=== PATIENT | female | born 1995 | race African-American/Black ===

== ENCOUNTER 2019-03-02 02:55 | Inpatient (IN) | payer OTHER ==
[2019-03-02] MEDS ORDERED: OXYTOCIN 20 UNITS in 0.9% NS 20 UNIT/1,000 ML INFUS.BAG IV ONE ×2 (03:44→07:18)
[2019-03-02 04:01] LABS: BASO % 1.2 % (0-2.0); EOS % 4.1 % (0-4.5); HEMATOCRIT 34.5 % (32.4-45.2); HEMOGLOBIN 11.1 GM/dL (10.7-15.3); MCH 26.9 pg (25.7-33.7); MCHC 32.1 g/dl (32.0-36.0); MEAN CELL VOLUME 83.6 fl (80-96); MEAN PLT VOLUME 10.3 fl (7.5-11.1); MONO % 10.8 % (3.8-10.2); NEUT % 51.9 % (42.8-82.8); PLATELET COUNT 194 K/MM3 (134-434); RBC 4.13 M/mm3 (3.60-5.2); RDW 13.9 % (11.6-15.6)
[2019-03-02 04:23] VITALS: BMI 26.9
[2019-03-02 04:26] LABS: INR 0.89 (0.83-1.09); PROTHROMBIN TIME (PATIENT) 10.5 SEC (9.7-13.0)
[2019-03-02 04:28] LABS: ACTIVATED PTT 29.1 SECONDS (25.2-36.5)
[2019-03-02 04:33] LABS: BLOOD UREA NITROGEN 7.6 mg/dL (7-18); CREATININE 0.7 mg/dL (0.55-1.3); POTASSIUM 3.7 mmol/L (3.5-5.1)
--- NOTE | 2019-03-02 04:38 | HP ---
Past Medical History - Admission Chief Complaint: active labor History of Present Illness: none History Source: Patient Limitations to Obtaining History: No Limitations - Past Medical History DIVER PUMPER: No: Alzheimer's, CVA, Dementia, Migraine, Multiple Sclerosis, Peripheral Neuropathy, Parkinson's, Seizure, Syncope, TIA, Vertigo, Other Cardiovascular: No: AFIB, Aneurysm, Aortic Insufficiency, Aortic Stenosis, CAD, CHF, Deep Vein Thrombosis, HTN, Hyperlipdemia, GA, Mitral Insufficiency, Mitral Stenosis, Murmur, Pulmonary Hypertension, Other Pulmonary: No: Asthma, Bronchitis, Cancer, COPD, O2 Dependent, Pneumonia, Previously Intubated, Pulmonary Embolus, Pulmonary Fibrosis, Sleep Apnea, Other Gastrointestinal: No: Ascites, Cancer, Constipation, Crohn's Disease, Diverticulitis, Diverticulosis, Esophageal Varices, Gastritis, GERD, GI Bleed, Hemorrhoids, Hiatal Hernia, Inflamatory Bowel Disease, Irritable Bowel Disease, Pancreatitis, Peptic Ulcer Disease, Ulcerative Colitis, Other Hepatobiliary: No: Cirrhosis, Cholelithiasis, Cholecystitis, Choledocholithiasis , Hepatitis A, Hepatitis B, Hepatitis C, Other Renal/: No: Renal Failure, Renal Inusuff, BPH, Cancer, Hematuria, Hemodialysis , Neurogenic Bladder, Renal Calculi, UTI, Other Reproductive: No: Ectopic , Endometriosis, Fibroids, PID, Polycystic Ovary Syndrome, Postmenopausal, Other ...: 2 ...Para: 1 ...Term: 1 ...: 0 ...Spon : 0 ...Induced : 0 ...Multiple Gestation: 0 ...LMP: 06/03/18 ... Weeks Gestation by Dates: 38 ...EDC by Sono: 03/10/19 Heme/Onc: No: Anemia, B12 Deficiency, Bleeding Disorder, Cancer, Current Chemotherapy, Current Radiation Therapy, Hemochromatosis, Hypercoaguable State, Myeloproliferative Synd, Sickle Cell Disease, Sickle Cell Trait, Thrombocytopenia, Other Infectious Disease: No: AIDS, C-Diff, Herpes Zoster, HIV, MRSA, STD's, Tuberculosis, VREF, Other Psych: No: Addictions, Anxiety, Bipolar, Depression, Panic, Psychosis, Schizophrenia, Other Musculoskeletal: No: Bursitis, Chronic low back pain, Hemiparesis, Hemiplegia, Osteoarthritis, Paraplegia, Other Rheumatology: No: Fibromyalgia, Gout, Lupus, Rheumatoid Arthritis, Sarcoidosis, Vasculitis, Other ENT: No: Allergic Rhinitis, Sinusitis, Other Endocrine: No: Mike's Disease, [place]'s Disease, Diabetes Insipidus, Diabetes Mellitus, Hyperparathyroidism, Hyperthyroidism, Hypothyroidism, Osteopenia, SIADH, Other Dermatology: No: Basal Cell, Cellulitis, Eczema, Melanoma, Psoriasis, Squamous Cell, Other - Past Surgical History Past Surgical History: No: None, AAA Repair, AICD, Amputation, Appendectomy, Arthrosocopy, AV Fistula/Graft, Bariatric Surgery, Breast Biopsy, Bypass, CABG, Carotid Endarterectomy, Cataract Removal, Cholecystectomy, Colectomy, Colonoscopy, Colostomy, Craniotomy, , Cystectomy, Hernia Repair, Hysterectomy, Ileal Conduit, Ileosotomy, Joint Replacement, Kidney Transplant, Laminectomy, Liver Transplant, Mastectomy, Nephrectomy, Oopherectomy, Orchiectomy, Permanent Pacemaker, Prostatectomy, Splenectomy, Stent, Thoracotomy , TURP, Tonsillectomy, Tubal Ligation, Upper Endoscopy, Valve Replacement, Vasectomy, Vein Stripping/Ligation Hx Myomectomy: No Hx Transabdominal Cerclage: No - Advance Directives Advance Directives: Yes: Living Will - Smoking History Smoking history: Never smoked Have you smoked in the past 12 months: No - Alcohol/Substance Use Hx Alcohol Use: No History of Substance Use: reports: None - Social History Usual Living Arrangement: Yes: With Significant Other ADL: Independent History of Recent Travel: No Family Disease History - Family Disease History Family History: Denies Review of Systems Unable to obtain ROS, reason: none - Review of Systems Constitutional: reports: No Symptoms Eyes: reports: No Symptoms HENT: reports: No Symptoms Neck: reports: No Symptoms Cardiovascular: reports: No Symptoms Respiratory: reports: No Symptoms Gastrointestinal: reports: No Symptoms Genitourinary: reports: No Symptoms Breasts: reports: No Symptoms Reported Musculoskeletal: reports: No Symptoms Integumentary: reports: No Symptoms Neurological: reports: No Symptoms Endocrine: reports: No Symptoms Hematology/Lymphatic: reports: No Symptoms Psychiatric: reports: No Symptoms Physical Exam - Maternity Constitutional: Yes: Well Nourished, No Distress, Calm Eyes: Yes: WNL, Conjunctiva Clear, EOM Intact HENT: Yes: WNL, Atraumatic, Normocephalic Neck: Yes: WNL, Supple, Trachea Midline Cardiovascular: Yes: WNL, Regular Rate and Rhythm Lungs: Clear to auscultation Breast(s): Yes: WNL - Abdominal Exam/OB Fundal Height: 38 Number of Fetuses: Single Presentation: Vertex Contractions: Yes Regularity: Regular Intensity: Mod/Strong Monitor Mode: External Heart Rate Location: [facility] Category: I Accelerations: Uniform Decelerations: Variable - Vaginal Exam/OB Vaginal Bleediing: No Speculum Exam: No Amniotic Membrane Status: Ruptured Amniotic Fluid: Yes: Clear Presentation: Vertex/Position Station: -1 - Physical Exam Musculoskeletal: Yes: WNL Extremities: Yes: WNL Edema: LUE: 1+, RUE: 1+, LLE: 1+, RLE: 1+ Integumentary: Yes: WNL Deep Tendon Reflex Grade: Normal +2 ...Motor Strength: WNL Psychiatric: Yes: WNL, Alert, Oriented - Labs Lab Results: CBC, BMP 03/02/19 03:40 Hemorrhage Risk Assessment - Risk Factors Risk Score: 0 Risk Level: Low Risk Assessment/Plan anticipte , 9 cm walk in
[2019-03-02] MEDS ORDERED: LIDOCAINE HCL 1% PRESERVATIVE FREE - 30ML VIAL ONE (05:12)
[2019-03-02] MEDS: OXYTOCIN 20 UNITS in 0.9% NS 20 UNIT/1,000 ML INFUS.BAG IV SCH ×2 (05:30→07:50)
[2019-03-02] MEDS ORDERED: BISACODYL 10 MG SUPP.RECT RC PRN (05:32)
[2019-03-02] MEDS ORDERED: oxyCODONE HCL 5 MG TABLET PO PRN (05:32)
[2019-03-02] MEDS ORDERED: BENZOCAINE 28 GM HEMORRHOIDAL OINTMENT TP PRN (05:32)
[2019-03-02] MEDS ORDERED: WITCH HAZEL 50% (TUCKS) 40 PAD/JAR PAD TP PRN (05:32)
[2019-03-02] MEDS ORDERED: BENZOCAINE 20% 57 GM BOTTLE TP PRN (05:32)
[2019-03-02] MEDS ORDERED: METHYLERGONOVINE MALEATE 0.2 MG/1 ML AMP IM PRN (05:32)
--- NOTE | 2019-03-02 05:40 | PN ---
Delivery - Delivery Vaginal Delivery: Shoulder/Difficult Maneuvers: mcrobert, suprapubic , woodscrew Type of Anesthesia: Local Episiotomy/Laceration: Right Mediolateral EBL (cc): 200 Delivery, Single - Stages of Labor Date 1st Stage Initiatied: 03/02/19 Time 1st Stage Initiated: 01:00 Date 2nd Stage Initiated: 03/02/19 Time 2nd Stage Initiated: 04:30 Date of Delivery: 03/02/19 Time of Delivery: 05:05 Date Placenta Delivered: 03/02/19 Time Placenta Delivered: 05:10 Placenta: Yes: Spontaneous - Condition of Rehabilitation Inspector/Maintenance Associate Present: No Infant Gender: Male Position: OA Total Hours ROM (Hrs/Mins): 1hr 30 min - 1 Minute Total Score: 6 5 Minutes Total Score: 9 - [place] Feeding Plan Benefits of Exclusively reinforced: Yes
[2019-03-02 05:55] LABS: VENOUS PC02 67.5 mmHg (41-51)
[2019-03-02 05:58] LABS: ARTERIAL BLD GAS O2 SATURATION 17.8 % (95-98)
[2019-03-02 06:00] LABS: ARTERIAL BLOOD GAS pH 7.08 (7.35-7.45)
[2019-03-02 06:01] LABS: ARTERIAL BLOOD GAS PCO2 79.8 mmHg (35-45); ARTERIAL BLOOD GAS PO2 15.8 mmHg (80-105)
[2019-03-02 06:02] LABS: VENOUS PH 7.15 (7.31-7.41); VENOUS PO2 16.9 mmHg (30-40)
[2019-03-02] MEDS: IBUPROFEN 600 MG TABLET (FP) PO PRN (06:10)
[2019-03-02] MEDS: ACETAMINOPHEN 325 MG TABLET (FP) PO PRN (06:10)
[2019-03-03] MEDS: ACETAMINOPHEN 325 MG TABLET (FP) PO PRN (00:39)
[2019-03-03] MEDS: IBUPROFEN 600 MG TABLET (FP) PO PRN (00:40)
[2019-03-03 09:00] LABS: BASO % 0.5 % (0-2.0); EOS % 2.7 % (0-4.5); HEMATOCRIT 29.4 % (32.4-45.2); HEMOGLOBIN 9.7 GM/dL (10.7-15.3); LYMPH % 23.6 % (8-40); MCH 27.2 pg (25.7-33.7); MCHC 32.9 g/dl (32.0-36.0); MEAN CELL VOLUME 82.7 fl (80-96); MONO % 8.3 % (3.8-10.2); NEUT % 64.9 % (42.8-82.8); PLATELET COUNT 179 K/MM3 (134-434); RBC 3.55 M/mm3 (3.60-5.2); RDW 13.8 % (11.6-15.6); WHITE BLOOD COUNT 9.3 K/mm3 (4.0-10.0)
--- NOTE | 2019-03-03 16:12 | PN ---
Post Progress Note Type of Delivery: Vital Signs: Vital Signs Temperature 98.8 F 03/03/19 14:00 Pulse Rate 77 03/03/19 14:00 Respiratory Rate 20 03/03/19 14:00 Blood Pressure 112/76 03/03/19 14:00 O2 Sat by Pulse Oximetry (%) 100 03/02/19 05:45 Breast Exam: Yes: Soft Uterus: Yes: Fundus Firm, Fundus below umbilicus Abdomen/GI: Yes: Abdomen soft, Passing flatus, Tolerating PO Lochia: Yes: Serosa Lochia, amount: Small Extremities: Yes: Calves non-tender Perineum: Yes: Intact Activity: Ambulating - Labs Labs: CBC WBC 9.3 K/mm3 (4.0-10.0) 03/03/19 07:37 RBC 3.55 M/mm3 (3.60-5.2) L 03/03/19 07:37 Hgb 9.7 GM/dL (10.7-15.3) L 03/03/19 07:37 Hct 29.4 % (32.4-45.2) L 03/03/19 07:37 MCV 82.7 fl (80-96) 03/03/19 07:37 MCH 27.2 pg (25.7-33.7) 03/03/19 07:37 MCHC 32.9 g/dl (32.0-36.0) 03/03/19 07:37 RDW 13.8 % (11.6-15.6) 03/03/19 07:37 Plt Count 179 K/MM3 (134-434) 03/03/19 07:37 MPV 10.0 fl (7.5-11.1) 03/03/19 07:37 Absolute Neuts (auto) 6.0 K/mm3 (1.5-8.0) 03/03/19 07:37 Neutrophils % 64.9 % (42.8-82.8) D 03/03/19 07:37 Lymphocytes % 23.6 % (8-40) D 03/03/19 07:37 Monocytes % 8.3 % (3.8-10.2) 03/03/19 07:37 Eosinophils % 2.7 % (0-4.5) 03/03/19 07:37 Basophils % 0.5 % (0-2.0) 03/03/19 07:37 Nucleated RBC % 0 % (0-0) 03/03/19 07:37 Other Findings, Remarks: baby is doing well, in room with mother, breast feeding well, pink, both shoulders moving well, no complaints Assessment/Plan dc pt home tomorrow
--- NOTE | 2019-03-03 16:14 | DS ---
Physical Exam-ROOM INSPECTOR Vital Signs: Vital Signs Temperature 98.8 F 03/03/19 14:00 Pulse Rate 77 03/03/19 14:00 Respiratory Rate 20 03/03/19 14:00 Blood Pressure 112/76 03/03/19 14:00 O2 Sat by Pulse Oximetry (%) 100 03/02/19 05:45 Constitutional: Yes: Well Nourished, No Distress, Calm Eyes: Yes: WNL, Conjunctiva Clear, EOM Intact HENT: Yes: WNL, Atraumatic, Normocephalic Neck: Yes: WNL, Supple, Trachea Midline Cardiovascular: Yes: WNL, Regular Rate and Rhythm Respiratory: Yes: WNL, Regular, CTA Bilaterally Gastrointestinal: Yes: WNL, Normal Bowel Sounds, Soft ...Rectal Exam: Yes: WNL Renal/: Yes: WNL Pelvis: Yes: WNL External Genitalia: Yes: Normal Internal Exam Deferred: No Vaginal Exam: Yes: Normal Cervix: Yes: Normal Uterus: Yes: Normal Adnexa: Normal: Bilateral ....Post : Yes: Uterus firm, Uterus non-tender Breast(s): Yes: WNL Musculoskeletal: Yes: WNL Extremities: Yes: WNL Edema: Yes Edema: LUE: 1+, RUE: 1+, LLE: 1+, RLE: 1+ Integumentary: Yes: WNL Wound/Incision: Yes: Clean/Dry, Well Approximated Neurological: Yes: WNL, Alert, Oriented ...Motor Strength: WNL Psychiatric: Yes: WNL, Alert, Oriented Labs: CBC, BMP 03/03/19 07:37 03/02/19 03:40 Delivery - Delivery Vaginal Delivery: Shoulder/Difficult Maneuvers: mcrobert, suprapubic , woodscrew Type of Anesthesia: Local Episiotomy/Laceration: Right Mediolateral EBL (cc): 200 Delivery, Single - Stages of Labor Date 1st Stage Initiatied: 03/02/19 Time 1st Stage Initiated: 01:00 Date 2nd Stage Initiated: 03/02/19 Time 2nd Stage Initiated: 04:30 Date of Delivery: 03/02/19 Time of Delivery: 05:05 Time Placenta Delivered: 05:10 Placenta: Yes: Spontaneous - Condition of Homeworker/Plan Consultant Present: No Gender: Male Weight: 3.317 kg Position: OA Total Hours ROM (Hrs/Mins): 1hr 30 min - 1 Minute Total Score: 6 5 Minutes Total Score: 9 - [place] Feeding Plan Initial Plan: Exclusive throughout hospitalization Benefits of Exclusively reinforced: Yes Discharge Summary Reason For Visit: LABOR Condition: Stable - Instructions Diet, Activity, Other Instructions: regular Disposition: HOME - Home Medications Comprehensive Discharge Medication List: Ambulatory Orders Vitamins (Sjr) - 1 tab PO DAILY 03/02/19
[2019-03-03] MEDS ORDERED: SENNOSIDES/DOCUSATE COMBO (SENNA PLUS) TABLET (UD) PO PRN (22:00)
[2019-03-04 10:22] VITALS: BP 114/73; PULSE 88; TEMP 98.5
== END 2019-03-04 11:50 | disposition home or self-care (01) | DRG 560 ==
LOC: JDEL 02:55 → JLDR 03:00 → J3W 08:02
PROVIDERS: ADMIT Obstetrics & Gynecology; ATTEND Obstetrics & Gynecology
PROC: 10E0XZZ Delivery of Products of Conception, External Approach (ICD-10-PCS; principal; 2019-03-02)
PROC: 0W8NXZZ Division of Female Perineum, External Approach (ICD-10-PCS; 2019-03-02)
DX: O80 Encounter for full-term uncomplicated delivery (principal); Z3A.38 38 weeks gestation of pregnancy; Z37.0 Single live birth
CPT/HCPCS: 36415; 36600; 59409; 80048; 82803; 85025; 85610; 85730; 86593; 86850; 86900; 86901